=== PATIENT | female | born 1980 | race Caucasian/White ===

== ENCOUNTER 2024-06-11 14:46 | Day surgery (SDC) | payer OTHER, SELFPAY ==
[2024-06-11] VITALS (16 sets, daily range): BP systolic 107–131; BP diastolic 40–91; BMI 39.1
[2024-06-11] MEDS: TORADOL 15 MG IV (09:43)
[2024-06-11] MEDS: NSS 1000 IV ×2 (09:44→18:17)
[2024-06-11 09:49] LABS: % Basophils 0.4 % (0-2); % Eosinophils 1.6 % (0-6); % Immature Granulocytes 0.2 % (0-0.5); % Lymphocytes 9.3 % (20.5-51.1); % Monocytes 8.8 % (1.7-9.3); % Neutrophils 79.7 % (42.2-75.2); Absolute Basophils 0.1 10^3/uL (0-0.2); Absolute Eosinophils 0.3 10^3/uL (0-0.7); Absolute Lymphocytes 1.6 10^3/uL (1.2-3.4); Absolute Monocytes 1.5 10^3/uL (0.1-0.6); Absolute Neutrophils 13.5 10^3/uL (1.4-6.5); Hematocrit 41.1 % (37.0-47.0); Hemoglobin 14.4 g/dL (12.0-16.0); Mean Corpuscular Hgb 29.6 pg (27.0-31.0); Mean Corpuscular Volume 84.6 fL (81.0-99.0); Mean Platelet Volume 11.5 fL (7.4-10.4); Nucleated Red Blood Cells % 0 %; Platelet Count 235 10^3/uL (130-400); Red Blood Cell Count 4.86 10^6/uL (4.20-5.40); Red Cell Dist. Width 11.8 % (11.5-14.5)
[2024-06-11 09:59] LABS: HCG, Serum Qualitative Screen Negative
--- NOTE | 2024-06-11 10:05 | ED.GENMED ---
History of Present Illness
General
Chief Complaint: Abdominal Pain
Source: patient
Exam Limitations: none
Time Seen by Provider: 06/11/24 09:16
History of Present Illness
History of Present Illness:
Patient describing fairly sudden onset of lower abdominal pain this morning. Started while at work B. Became lightheaded during the episode. Lightheadedness has resolved however pain is persist. No radiation to the back. No urinary symptoms.
She is midcycle. Denies . had a vasectomy. Pain is moderate in nature.
Past History
Past History
ED Past Medical History: None
ED Past Surgical History: Orthopedic and Tonsilectomy
Social History
Employment: Employed
Review of Systems
Review of Systems
All Other Systems: Not applicable
Constitutional: Denies fever
Respiratory: Reports no symptoms
Cardiac: Reports no symptoms
: Reports no symptoms
Phy Exam
Physical Exam
Physical Exam:
GENERAL: Alert and oriented in no apparent distress, but does appear mildly uncomfortable
EYE: Orbits normal.
NECK: Supple, no significant adenopathy.
ENT: Pharynx without erythema
CARDIAC: Regular rate and rhythm without any obvious murmurs.
LUNGS: Clear breath sounds,normal
ABDOMEN: Soft, bowel sounds present. Tenderness mild epigastric. Mild to moderate right lower quadrant. No rebound or guarding no mass or hernia
NEUROLOGICAL: Alert and oriented , grossly non-focal
SKIN: Warm and dry, no rash or lesion, no discoloration, skin intact.
MUSCULOSKELETAL: No edema,no deformity.Good color
PSYCH: Normal and appropriate interaction.
Course
Orders/Labs/Results
Orders:
Orders
06/11/24 09:24
CT Abd/Pel (IV only)-DH only Urgent
Comment:
Reason For Exam: Right lower quadrant/pelvic pain
IV Insert/Care/Rem.- Treatment PRN
0.9% Sodium Chloride 1000 ml [Nss] 1,000 ml IV BOLUS
Ketorolac [Toradol] 15 mg IV NOW STA
Test Result ONCE
US Pelvis W Transvag Combined Urgent
Reason For Exam: Sudden right pelvic pain.
06/11/24 09:29
Complete Blood Count/With Diff Urgent
Comprehensive Metabolic Panel Urgent
HCG, Serum Qualitative Screen Urgent
Lipase Urgent
06/11/24 12:32
Urinalysis Reflex To Culture Urgent
Date Specimen was Collected: 06/11/24
Time Specimen was Collected: 11:40
06/11/24 13:29
Piperacillin/Tazo 3.375 Gram [Zosyn] 3.375 gram in 50 ml IV ONCE
06/11/24 14:05
HYDROmorphone [Dilaudid] 0.25 mg IV PACU-Q5MPRN PRN
HYDROmorphone [Dilaudid] 0.5 mg IV PACU-Q5MPRN PRN
Meperidine [Demerol] 12.5 mg IV PACU-Q5MPRN PRN
Ondansetron Injectable [Zofran] 4 mg IV PACU-ONCEPRN PRN
Prochlorperazine [Compazine] 5 mg IV PACU-ONCEPRN PRN
Notify MD As Directed
Notify physician if: for SDS patients with known or suspected sleep obstructive sleep apnea, monitor in the
PACU.
Notify MD for any apneic/desaturation episodes
O2 Therapy [RESP] Urgent
Titrate/Wean O2 to maintain O2 sat greater than (%): 92
Special Instructions: -Provide supplemental oxygen to achieve O2 sat of 92% or greater.
-After 15 min, may wean O2 and discontinue if patient is able to maintain O2 sat of 92%
or greater during recovery period.
If patient is a discharge home, without oxygen therapy, notify anestheiologist if
unable to maintain O2 SAT of 92% or greater on room air for MD clearance.
06/11/24 14:15
Normosol (Mult Electrolytes) [Normosol-R/Plasmalyte-A] 1,000 ml IV PER PROTOCOL
06/11/24 14:49
Fentanyl Citrate/Pf [Sublimaze] 100 mcg .ROUTE .STK-MED ONE
Lidocaine HCl/Pf [Xylocaine-Mpf 1% Vial] 50 mg .ROUTE .STK-MED ONE
Midazolam HCl [Versed] 2 mg .ROUTE .STK-MED ONE
Propofol [Diprivan] 40 ml .ROUTE .STK-MED
Succinylcholine Chloride [Succinylcholine] 200 mg .ROUTE .STK-MED ONE
06/11/24 14:50
Dexamethasone Sod Phosphate [Decadron] 20 mg .ROUTE .STK-MED ONE
Ondansetron Injectable [Zofran] 4 mg .ROUTE .STK-MED ONE
06/11/24 14:53
Rocuronium Dawn [Rocuronium] 50 mg .ROUTE .STK-MED ONE
06/11/24 15:16
Bupivacaine 0.25%Pf/Epinephrin [Sensorcaine-Epi 0.25%-0.0005] 30 ml .ROUTE .STK-MED ONE
Abnormal Lab Results
06/11/24
09:29
WBC 17.0 H 10^3/uL
(4.8-10.8)
MPV 11.5 H fL
(7.4-10.4)
Absolute Neuts (auto) 13.5 H 10^3/uL
(1.4-6.5)
Absolute Monos (auto) 1.5 H 10^3/uL
(0.1-0.6)
Neutrophils % 79.7 H %
(42.2-75.2)
Lymphocytes % 9.3 L %
(20.5-51.1)
Glucose 105 H mg/dl
(70-99)
Calcium 10.5 H mg/dl
(8.4-10.2)
06/11/24 09:29
06/11/24 09:29
Vital Signs
Initial and Last Documented VS:
Initial Vital Signs
Temp Pulse Resp BP Pulse Ox
97.8 F 92 18 130/91 98
06/11/24 08:17 06/11/24 08:17 06/11/24 08:17 06/11/24 08:17 06/11/24 08:17
Last Documented Vital Signs
Temp Pulse Resp BP Pulse Ox
98.7 F 76 18 123/78 98
06/11/24 14:21 06/11/24 14:21 06/11/24 14:21 06/11/24 14:21 06/11/24 14:21
MDM/Problems Addressed
Differential Diagnosis Includes:
Differential of relatively sudden onset right lower quadrant pain would include kidney stone, ovarian issue either torsion or ruptured cyst. Appendicitis also in the differential. Workup in progress
*Pulse Oximetry
Patient hypoxic: no
*Critical Care Note
Total Time (30-74mins, 75-104mins- exclusive of procedures): Not Applicable
ED Attending Note
-
Portions of this chart may have been created with voice recognition software.� Occasional wrong word or��sound alike� substitutions may have occurred due to the inherent limitations of voice recognition software.
Discharge Plan
Departure
Patient Disposition: Admit
Date of Disposition: 06/11/24
Time of Disposition: 13:07
Presentation/result/management discussed w/ accepting MD/DO: Surgery
Discharge Problem:
Acute appendicitis
Interventions
Interventions:
*Risk Screen - Suicide Last Done: 06/11/24 08:17
*General Assessment Last Done: 06/11/24 08:17
*Neglect/Abuse Screening Last Done: 06/11/24 08:17
ED- Fall Risk Assessment Last Done: 06/11/24 14:21
*Nursing Disposition Last Done: 06/11/24 14:21
CF-Dgifst-Rcwajwcjco Assessment Last Done: 06/11/24 10:16
Discharge Date and Time
Discharge Date/Time: 06/11/24 14:24
[2024-06-11 10:10] LABS: ALT (SGPT) 21 U/L (0-35); AST (SGOT) 18 U/L (14-36); Albumin 4.4 g/dl (3.5-5.0); Alkaline Phosphatase 54 U/L (38-126); Blood Urea Nitrogen 15 mg/dl (7-17); Calcium 10.5 mg/dl (8.4-10.2); Carbon Dioxide 25 mmol/L (22-30); Chloride 105 mmol/L (98-107); Estimated Creatinine Clearance 116 ml/min; Glucose 105 mg/dl (70-99); Lipase 94 U/L (23-300); Potassium 4.3 mmol/L (3.5-5.1); Sodium 140 mmol/L (135-145); Total Bilirubin 0.4 mg/dl (0.2-1.3); Total Protein 6.6 g/dl (6.3-8.2); eGFR > 60.00
[2024-06-11 12:41] LABS: Urine Albumin Negative (Neg - Trace); Urine Bilirubin Negative (Negative); Urine Character Clear (Clear); Urine Color Yellow; Urine Glucose Negative (Negative); Urine Ketone Negative (Negative); Urine Leukocyte Negative (Negative); Urine Nitrite Negative (Negative); Urine Occult Blood Negative (Negative); Urine Specific Gravity 1.015 (<1.030); Urine Urobilinogen Negative (Neg - 1+)
--- NOTE | 2024-06-11 13:29 | HP.FOC2 ---
Focused History & Physical
Chief Complaint
HPI:
Chief Complaint: Right lower quadrant abdominal pain
HPI / Indication for Planned Procedure: 43-year-old female with acute onset of abdominal pain this a.m. with some mild nausea and localizing right lower quadrant. Over the past week or so she has had some lower back pain that she was attributing to
be musculoskeletal as she had no additional associated symptoms. But this is different.
No fevers, chills or sweats. No symptoms. Last bowel movement this morning and normal.
Relevant Past Medical History: Other (Bipolar)
Relevant Social History: Negative
Relevant Family History: Negative
Relevant Past Surgical History: Negative
Review of Systems
Review of Pertinent Systems: All Systems Negative
Medication
See Medication form for detailed medications: Yes
Medication List (including Herbals & OTC):
ondansetron HCl 4 mg tablet (Zofran) 4 mg PO Q8HPRN #14 tabs 07/14/14
Medications Reviewed: Yes
Allergies and Reactions
Patient has Allergies: No
Noted Allergies and Reactions:
Allergy/AdvReac Type Severity Reaction Status Date / Time
No Known Allergies Allergy Verified 07/14/14 08:01
Pertinent Physical Exam
All Other Systems: Negative
Head/Neck: Normal
Lungs: Normal
Heart: Normal
Abdomen: Other (Tenderness to palpation suprapubic and right lower quadrant. Localized guarding on deep palpation in the right lower quadrant.)
Extremities: Normal
Neurological: Normal
Diagnosis / Assessment
Assessment: 43-year-old female with acute appendicitis.
Reviewed with patient history, examination and CT imaging consistent with acute appendicitis. Discussed both operative and nonoperative management options and associated risks/benefits of approaches. Patient is in agreement to proceed with
appendectomy.
Laparoscopic appendectomy reviewed in detail with the patient. Discussed operative technique utilizing diagrams or drawings, alternative management options, benefits and potential risks such as but not limited to bleeding, infectious or wound
healing complications, iatrogenic injury to surrounding viscera. Discussed the typical postoperative recovery pending operative findings.
Any of the patient's concerns or questions were fully addressed and informed consent was obtained.
Plan: OR for laparoscopic appendectomy.
Empiric antibiotic coverage with Zosyn ordered on-call to the OR.
Nothing by mouth, IV fluid hydration and supportive care awaiting operative room availability.
SCDs for DVT prophylaxis
Plan / Procedure
Laparoscopic appendectomy
Anesthesia/Sedation to be done by Anesthesia Provider: Yes
--- NOTE | 2024-06-11 13:35 | W.SUR.PREOP ---
Pre-Operative Surgical Note
-
I have examined this patient prior to the performance of the scheduled procedure.
The patient's condition is unchanged from the time of the current History and
Physical and the patient is able to undergo the scheduled procedure.
--- NOTE | 2024-06-11 16:21 | W.IMMPOSTOP ---
Addendum entered and electronically signed by Kannan Sanchez MD 07/01/24 13:26:
#[id number]
Original Note:
Surgical Immed Post Op Note
-
Primary Surgeon: Daniel
Assisting Surgeon: None
Pre-op Diagnosis: Acute appendicitis
Post-op Diagnosis: Purulent acute appendicitis
Procedure Performed: Laparoscopic appendectomy
Anesthesia Type: GETA +0.25% Marcaine
Specimen / Cultures: Appendix
Estimated Blood Loss: 5 mL
Complications: None immediate
Operative Findings: Inflamed, distended appendix in the deep pelvis with a floppy/redundant cecum. No gross perforation of the appendix but there was a moderate amount of purulent free fluid surrounding the pelvis and appendix. No disruption of
appendix with appendectomy. Appendix divided flush with cecum utilizing Endo YAYO carter 30 mm articulating stapler. Purulent free fluid suctioned from the pelvis and irrigated till clear. No organized abscess. Fibroid uterus. No additional notable
findings.
Plan: Advance diet as tolerated postoperatively monitoring for potential of an ileus
Continue Zosyn overnight and discharged home with 5-day course of Augmentin
Probable DC tomorrow a.m. after breakfast if tolerating dietary advancement.
Patient's updated via phone call postoperatively.
[2024-06-11] MEDS: TORADOL 10 MG IV (17:05)
--- NOTE | 2024-06-11 18:23 | PTCARENOTE ---
Pt received to 2S in bed. Pt drowsy but easily arouses to verbal stimuli. Pt ambulated to the BR with assistance from NSG. Abdominal lap sites C/D/I, glued and BRANDON. IVF infusing per order. Bed locked and in the lowest position, safety maintained.
Oriented to room and call deshpande, family at bedside.
[2024-06-11] MEDS: LAMICTAL 100 MG PO (21:08)
[2024-06-11] MEDS: ZOSYN 50 IV (21:08)
[2024-06-12 03:12] VITALS: BP 108/56
[2024-06-12] MEDS: ZOSYN 50 IV ×2 (03:55→09:04)
[2024-06-12] MEDS: NSS 1000 IV (04:12)
[2024-06-12] MEDS: MOTRIN 400 MG PO (05:59)
[2024-06-12 07:10] VITALS: BP 135/72
[2024-06-12] MEDS: CLARITIN 10 MG PO (08:19)
[2024-06-12] MEDS: IMITREX 100 MG PO (09:04)
--- NOTE | 2024-06-12 09:05 | W.PN.GS2 ---
Today's Communication / Plan
-
dispo planning
Assessment / Plan
-
43 yo female who presented with acute appendicitis now POD #1 lap appi with surrounding purulence noted intraop
AFVSS
Following expected post op course
notes migraine present, takes imitrex prn at home
--continue regular diet
--will give po Imitrex x1
--analgesics as needed
--transition to PO abx upon discharge with Augmentin
--discharge today
Subjective Data
-
Date of Service: June 12, 2024
Patient seen and examined at bedside. Denies n/v. Passing flatus. Tolerating regular diet. Some soreness post op, but pain prior to surgery is resolved. c/o migraine this am.
Objective Data
-
Intake and Output
06/11/24 06/12/24 06/13/24
06:59 06:59 06:59
Intake Total 2250 / 2250
Balance 2250 / 2250
Intake:
Oral fluids 480 / 480
IV fluids (Total) 1670 / 1670
Normosol 350 / 350
IV piggybacks 100 / 100
Other:
Number of approximated MODERATE 2
amounts of urine
Number of approximated LARGE 1
amounts of urine
Vital Signs
Temp Pulse Resp BP Pulse Ox
97.7 F 77 18 135/72 98
06/12/24 07:10 06/12/24 07:10 06/12/24 07:10 06/12/24 07:10 06/12/24 07:10
Lab Results
06/11/24 09:29
06/11/24 09:29
Calcium 10.5 mg/dl (8.4-10.2) H 06/11/24 09:29
Total Bilirubin 0.4 mg/dl (0.2-1.3) 06/11/24
AST 18 U/L (14-36) 06/11/24
ALT 21 U/L (0-35) 06/11/24
Alkaline Phosphatase 54 U/L (38-126) 06/11/24
Total Protein 6.6 g/dl (6.3-8.2) 06/11/24
Albumin 4.4 g/dl (3.5-5.0) 06/11/24
Physical Exam
-
NAD
ABD soft, NT, ND
Incisions well approximated without erythema, glue intact
--- NOTE | 2024-06-12 09:52 | W.DS.TRANS ---
DC Summary - Test Data Developer
-
Discharge Instructions:
Discharge Diagnosis/Procedures Acute appendicitis. Laparoscopic appendectomy
Diet As tolerated,Regular
Additional Diets Smaller meals initially after surgery as
abdominal bloating and distention are common for
the first few days
Activity No strenuous activity
Additional Activity No lifting over 15 pounds for 3 weeks
postoperatively
Driving Restrictions No driving for 24 hours
Bathing Restrictions OK to Shower
Wound Care Glue at surgical sites typically peels off in 2
to 3 weeks
Instructions:
Stand-Alone Forms:
Changes to Home Medications: No
Discharge Medications:
DC Medications w/original date entered in [employer]
ascorbic acid 30 mg-collagen, hydrolyzed 833.3 mg tablet (Collagen Skin Renewal) 3 tab PO DAILY 06/11/24
cholecalciferol (vitamin D3) 25 mcg (1,000 unit) tablet (Vitamin D3) 25 mcg PO DAILY 06/11/24
dextroamphetamine-amphetamine ER 12.5 mg capsule, 3 bead, ext rel 24hr (Mydayis) 12.5 mg PO DAILY 06/11/24
doxycycline monohydrate 40 mg capsule,immediate - delay release 40 mg PO DAILY 06/11/24
fexofenadine 60 mg tablet 60 mg PO DAILY 06/11/24
lamotrigine 100 mg tablet (Lamictal) 100 mg PO DAILY@1200 06/11/24
acetaminophen 500 mg tablet (Tylenol Extra Strength) 1,000 mg (2 x 500 mg) PO Q6HPRN PRN mild pain #1 tab 06/12/24
amoxicillin 875 mg-potassium clavulanate 125 mg tablet 1 tab PO Q12 antibiotic #9 tabs 06/12/24
ibuprofen 200 mg tablet 400 - 600 mg (2 - 3 x 200 mg) PO Q6HPRN PRN moderate pain #1 tab 06/12/24
oxycodone 5 mg tablet 5 mg PO Q4HPRN PRN breakthrough/severe pain #5 tabs 06/12/24
Home Medication Changes
Pending Results: No
[2024-06-12] MEDS: AFLURIA (36 mos+) 2024-2025 FORMULA 0.5 ML IM (09:57)
--- NOTE | 2024-06-12 11:04 | CM ---
Met with pt and her at bedside
Pt reports she lives with her in a 1 story home. No steps to enter
Independent at baseline, employed FT, drives
DME - none
SNF/HH - no past hx
Has ride at d/c
Confirmed PCP - [facility] - [facility]
Plan - anticipate home no needs
== END 2024-06-12 10:25 | disposition home or self-care (01) ==
LOC: SDS 14:46
PROVIDERS: ATTENDING PHYSICIAN Surgery; EMERGENCY PHYSICIAN Emergency Medicine; FAMILY PHYSICIAN Internal Medicine
DX: K35.80 Unspecified acute appendicitis (principal); R10.31 Right lower quadrant pain; K38.2 Diverticulum of appendix; N80.549 Endometriosis of the appendix, unspecified depth
CPT/HCPCS: 44970; 88304; 74177; 76830; 76856; 80053; 81003; 83690; 84703; 85025; 88341; 88342; 90686; 96361; 96374; 99285; G0008; Q9967